=== PATIENT | female | born 1960 | race Caucasian/White ===

== ENCOUNTER 2024-05-23 09:24 | Emergency (ER) | payer MEDICARE ==
[~2024-05-23] VITALS: Ht 167.6 cm; Wt 53.1 kg
[2024-05-23 09:29] VITALS: BP 122/66; PULSE 94; RESP 18; TEMP 97.8; O2SAT 99
[2024-05-23] MEDS ORDERED: PALI6TAB PO (11:32)
[2024-05-23] MEDS ORDERED: QUET50TA PO (11:32)
[2024-05-23] MEDS ORDERED: BICT1TAB (11:32)
[2024-05-23] MEDS ORDERED: BICT1TAB PO (11:41)
[2024-05-23] MEDS ORDERED: IBUP-1986 PO (11:41)
== END 2024-05-23 11:50 | disposition home or self-care (01) ==
LOC: ER 09:25
DX: G89.29 Other chronic pain (principal)
CPT/HCPCS: 99282

== ENCOUNTER 2024-08-06 03:25 | Emergency (ER) | payer MEDICARE ==
[~2024-08-06] VITALS: Ht 167.6 cm; Wt 63.6 kg
[~2024-08-06 03:25] MED LIST: BICT1TAB; BICT1TAB PO; IBUP-1986 PO; PALI6TAB PO; QUET50TA PO
[2024-08-06 04:43] LABS: APTT 29 SECONDS (22-32); PROTHROMBIN TIME 10.2 SECONDS (9.0-12.0)
[2024-08-06 04:45] LABS: ALANINE AMINOTRANSFERASE 34 U/L (12-78); ALBUMIN 3.6 G/DL (3.4-5.0); ALBUMIN/GLOBULIN RATIO 0.9 (1.1-1.5); ALKALINE PHOSPHATASE 141 IU/L (46-116); ANION GAP 9 (8-16); ASPARTATE AMINO TRANSFERASE 73 U/L (10-37); BILIRUBIN,TOTAL 1.3 MG/DL (0.1-1.0); BLOOD UREA NITROGEN 11 MG/DL (7-18); BUN/CREATININE RATIO 13.9 (10.0-20.0); CALCIUM 8.5 MG/DL (8.5-10.1); CHLORIDE 100 MMOL/L (99-107); CREATININE 0.79 MG/DL (0.40-0.90); ETHANOL < 10 MG/DL (<10); GLUCOSE 95 MG/DL (70-104); POTASSIUM 4.4 MMOL/L (3.5-5.1); SODIUM 136 MMOL/L (135-145); TOTAL CARBON DIOXIDE 27.4 MMOL/L (24-32); TOTAL PROTEIN 7.6 G/DL (6.4-8.2); eCRCL 66 ML/MIN; eGFR 73 ML/MIN
[2024-08-06] MEDS ORDERED: HYDR-3965 PO (05:36)
[2024-08-06] MEDS: HYDROcodone/acetaminophen 5mg/325mg tablet PO ONE (06:21)
[2024-08-06 07:53] LABS: BASOPHILS % (AUTO) 0.4 % (0-1); EOSINOPHILS % (AUTO) 0.1 % (0-6); HEMATOCRIT 39.5 % (35.0-45.0); HEMOGLOBIN 13.6 g/dl (12.0-16.0); LYMPHOCYTES # (AUTO) 1.4 X10'3 (1.1-4.8); LYMPHOCYTES % (AUTO) 17.3 % (21-51); MEAN CORPUSCULAR HEMOGLOBIN 33.1 PG (27.0-31.0); MEAN CORPUSCULAR HGB CONC 34.3 g/dL (33.0-36.5); MEAN CORPUSCULAR VOLUME 96.4 FL (78-98); MEAN PLATELET VOLUME 6.7 FL (7.4-10.4); MONOCYTES # (AUTO) 0.4 X10'3 (0-0.9); MONOCYTES % (AUTO) 5.3 % (2-12); NEUTROPHILS # (AUTO) 6.4 X10'3 (1.8-7.7); NEUTROPHILS % (AUTO) 76.9 % (42-75); PLATELET COUNT 290 X10'3 (140-440); RED CELL DISTRIBUTION WIDTH 13.9 % (11.5-14.5); WHITE BLOOD COUNT 8.3 X10'3 (4.5-11.0)
[2024-08-06 08:33] VITALS: PULSE 79
[2024-08-06 08:48] VITALS: BP 123/74; RESP 16; TEMP 98.6; O2SAT 97
== END 2024-08-06 08:51 | disposition home or self-care (01) ==
LOC: ER 03:26
DX: S00.83XA Contusion of other part of head, initial encounter (principal); S09.8XXA Other specified injuries of head, initial encounter; Z79.899 Other long term (current) drug therapy; Z79.1 Long term (current) use of non-steroidal anti-inflammatories (NSAID); Y04.0XXA Assault by unarmed brawl or fight, initial encounter; Y93.89 Activity, other specified; Y92.89 Other specified places as the place of occurrence of the external cause; Y99.8 Other external cause status
CPT/HCPCS: 36415; 70450; 70486; 71045; 72125; 80053; 85025; 85610; 85730; 99285; G0480; 80320

== ENCOUNTER 2024-08-11 15:52 | Emergency (ER) | payer MEDICARE ==
[~2024-08-11] VITALS: Ht 170.2 cm; Wt 38.2 kg
[~2024-08-11 15:52] MED LIST changes: +HYDR-3965 PO
[2024-08-11 16:02] VITALS: BP 127/88; PULSE 81; RESP 15; O2SAT 98
[2024-08-11] MEDS ORDERED: iohexol 300mg/ml 100ml inj. ONE (18:43)
[2024-08-11 19:28] LABS: ALBUMIN 2.8 G/DL (3.4-5.0); ANION GAP 10 (8-16); BLOOD UREA NITROGEN 17 MG/DL (7-18); BUN/CREATININE RATIO 20.2 (10.0-20.0); CALCIUM 8.7 MG/DL (8.5-10.1); CHLORIDE 100 MMOL/L (99-107); CREATININE 0.84 MG/DL (0.40-0.90); ETHANOL < 10 MG/DL (<10); GLUCOSE 115 MG/DL (70-104); POTASSIUM 4.1 MMOL/L (3.5-5.1); SODIUM 136 MMOL/L (135-145); TOTAL CARBON DIOXIDE 26.1 MMOL/L (24-32); eCRCL 40 ML/MIN; eGFR 68 ML/MIN
[2024-08-11 20:17] LABS: BASOPHILS % (AUTO) 0.3 % (0-1); EOSINOPHILS % (AUTO) 0.6 % (0-6); HEMATOCRIT 34.3 % (35.0-45.0); HEMOGLOBIN 11.7 g/dl (12.0-16.0); LYMPHOCYTES # (AUTO) 1.5 X10'3 (1.1-4.8); LYMPHOCYTES % (AUTO) 24.2 % (21-51); MEAN CORPUSCULAR HEMOGLOBIN 33.2 PG (27.0-31.0); MEAN CORPUSCULAR HGB CONC 34.3 g/dL (33.0-36.5); MEAN CORPUSCULAR VOLUME 96.9 FL (78-98); MEAN PLATELET VOLUME 6.2 FL (7.4-10.4); MONOCYTES # (AUTO) 0.5 X10'3 (0-0.9); MONOCYTES % (AUTO) 7.7 % (2-12); NEUTROPHILS # (AUTO) 4.2 X10'3 (1.8-7.7); NEUTROPHILS % (AUTO) 67.2 % (42-75); PLATELET COUNT 238 X10'3 (140-440); RED BLOOD COUNT 3.54 X10'6 (4.20-5.60); RED CELL DISTRIBUTION WIDTH 13.3 % (11.5-14.5); WHITE BLOOD COUNT 6.2 X10'3 (4.5-11.0)
[2024-08-11] MEDS ORDERED: SULF1TAB49 PO (21:59)
[2024-08-11] MEDS ORDERED: IBUP-1984 PO (21:59)
[2024-08-11 22:08] VITALS: TEMP 97.6
[2024-08-11] MEDS: sulfamethoxazole/trimethoprim DS (800/160mg) tablet PO ONE (22:09)
[2024-08-11] MEDS: ibuprofen tablet 400 MG TABLET PO ONE (22:09)
== END 2024-08-11 22:19 | disposition home or self-care (01) ==
LOC: ER 15:52
DX: S00.83XA Contusion of other part of head, initial encounter (principal); S10.93XA Contusion of unspecified part of neck, initial encounter; S20.01XA Contusion of right breast, initial encounter; S20.211A Contusion of right front wall of thorax, initial encounter; F07.81 Postconcussional syndrome; R91.8 Other nonspecific abnormal finding of lung field; Y08.89XA Assault by other specified means, initial encounter; Y93.89 Activity, other specified; Y92.89 Other specified places as the place of occurrence of the external cause; Y99.8 Other external cause status
CPT/HCPCS: 36415; 70450; 70486; 71260; 72125; 74177; 80048; 85025; 99285; G0480; Q9967; 80320